=== PATIENT | female | born 1990 | race Two or more races ===

== ENCOUNTER 2018-08-11 08:23 | Inpatient (IN) | payer MEDICAID, OTHER ==
[~2018-08-11] VITALS: Ht 172.7 cm; Wt 63.5 kg
[2018-08-11 09:00] LABS: BASOPHILS % (AUTO) 0.4 % (0.0-2.0); EOSINOPHILS % (AUTO) 2.2 % (0.0-6.0); HEMATOCRIT 31 % (33-45); HEMOGLOBIN 10.1 g/dL (11.5-14.8); LYMPHOCYTES % (AUTO) 20.4 % (20.0-44.0); MEAN CORPUSCULAR HGB CONC 33 g/dl (31.0-36.0); MEAN CORPUSCULAR VOLUME 85 fL (82-100); MONOCYTES # (AUTO) 0.3 /CMM (0.1-1.30); MONOCYTES % (AUTO) 6.2 % (2.0-12.0); NEUTROPHILS # (AUTO) 3.6 /CMM (1.8-8.9); NEUTROPHILS % (AUTO) 70.8 % (43.0-81.0); PLATELET COUNT (AUTO) 189 /CMM (150-450); RED BLOOD CELL COUNT(AUTO) 3.64 MIL/uL (4.0-5.2)
[2018-08-11 09:07] LABS: CALCIUM, SERUM 8.3 mg/dL (8.5-10.1); CREATININE 0.7 mg/dL (0.6-1.3); POTASSIUM 3.5 mmol/L (3.5-5.1)
[2018-08-11 09:08] LABS: APPEARANCE,URINE CLEAR (CLEAR); BILIRUBIN,URINE NEGATIVE (NEGATIVE); BLOOD, URINE 3+ Ery/uL (NEGATIVE); COLOR,URINE YELLOW (YELLOW); KETONES,URINE NEGATIVE (NEGATIVE); LEUKOCYTE ESTERASE ,URINE NEGATIVE (NEGATIVE); NITRITE, URINE NEGATIVE (NEGATIVE); PH,URINE 6.5 (5.0-8.0); PROTEIN,URINE NEGATIVE (NEGATIVE); UGLUCOSE NEGATIVE (NEGATIVE); UROBILINOGEN,URINE 0.2 EU/dL (0.2)
[2018-08-11 09:14] LABS: RBC,URINE 21-50 /HPF (0-2)
[2018-08-11 09:15] LABS: BACTERIA,URINE Rare /HPF (None Seen); SQUAMOUS EPITHELIAL CELL,UR Few /HPF (None Seen)
--- NOTE | 2018-08-11 11:17 | NUR ---
CALLED DR ALMANZAR ON THE PHONE WITH DR MENDEZ.
[2018-08-11] MEDS ORDERED: IV NS 0.9% 1,000 ML IV PRN (12:17)
--- NOTE | 2018-08-11 12:18 | NUR ---
REPORT GIVEN TO DAVID PERRY FOR FRANCIS. PATIENT FOR MED SURG ROOM 328-1
--- NOTE | 2018-08-11 12:22 | NUR ---
PATIENT TRANSFERED TO [facility] BED 328-1 WITHOUT COMPLICATION. CARE ENDORSED TO [place]O HERNANDEZ. ALL BELONGINVGS WITH /SO
[2018-08-11] MEDS ORDERED: ONDANSETRON HCL/PF 4 MG/2 ML VIAL IVP PRN (12:30)
[2018-08-11] MEDS ORDERED: MORPHINE SULFATE INJ 2 MG/ML DISP.SYRIN IV PRN (12:30)
[2018-08-11 12:55] VITALS: BP 99/59
--- NOTE | 2018-08-11 12:55 | NUR ---
ms rn received a new admission, a 28 year old female, came in w/ dx of ectopic , awake,alert,oriented x4,will have surgery today,will monitor patient.
[2018-08-11] MEDS ORDERED: HYDROMORPHONE INJ 0.5 MG/0.5 ML SYRINGE IV PRN (13:00)
[2018-08-11] MEDS ORDERED: PIPERACILLIN /TAZOBACTAM 4.5 G in IV D5W 50 ML IV ONE (13:00)
[2018-08-11] MEDS ORDERED: HYDROMORPHONE INJ 2 MG/ML DISP.SYRIN ONE (13:59)
[2018-08-11] MEDS ORDERED: ROCURONIUM BROMIDE 50 MG/5 ML ONE (13:59)
[2018-08-11] MEDS ORDERED: MIDAZOLAM HCL 2 MG/2ML VIAL ONE (13:59)
--- NOTE | 2018-08-11 15:40 | NUR ---
ms rn went down to surgery ,no distress noted.
[2018-08-11 16:09] VITALS: BP 95/54
[2018-08-11] MEDS ORDERED: CLINDAMYCIN 900 MG/6 ML VIAL ONE (17:29)
--- NOTE | 2018-08-11 17:32 | NUR ---
ms schwarz on bed, all needs attended. Addendum: 08/11/18 at 1735 by DAVID DANIELS RN disregard notes, wrong pt entry.
--- NOTE | 2018-08-11 17:35 | NUR ---
ms rn patient still down at or at this time.
[2018-08-11] MEDS ORDERED: ACETAMINOPHEN 325 MG TABLET PO PRN (18:00)
[2018-08-11] MEDS ORDERED: HYDROCODONE/APAP 5/325MG 1 EACH TABLET PO PRN (18:00)
[2018-08-11] MEDS ORDERED: IV LR 1000 ML 1,000 ML IV PRN (18:00)
[2018-08-11] MEDS: PIPERACILLIN /TAZOBACTAM 3.375 G in IV D5W 100 ML IV SCH (18:44)
--- NOTE | 2018-08-11 19:05 | NUR ---
RN MS OPENING NOTES RECEIVED PATIENT IN BED AWAKE ALERT AND ORIENTED X 4, ABLE TO MAKE NEEDS KNOWN, RESPIRATIONS EVEN AND UNLABORED WITH EQUAL RISE AND FALL OF CHEST,DENIES ANY PAIN OR DISCOMFORT AT THIS TIME, IV SITE TO LEFT AC ##20 INTACT AND PATENT, NO REDNESS, NO INFILTRATION PRESENT, ORIENTED TO STAFF AND CALL LIGHT, AND KEPT WITHIN REACH, TOILETING NEEDS RENDERED FLUIDS OFFERED, REMAINS COMFORTABLE, ALL NEEDS ATTENDED AT THIS TIME, WILL CONTINUE TO MONITOR.
[2018-08-11 20:00] VITALS: BP 103/54
[2018-08-11 21:39] VITALS: BP 103/54
[2018-08-11] MEDS ORDERED: ZOLPIDEM TARTRATE 5 MG TABLET PO PRN (22:00)
[2018-08-12] MEDS: PIPERACILLIN /TAZOBACTAM 3.375 G in IV D5W 100 ML IV SCH ×2 (02:03→10:03)
--- NOTE | 2018-08-12 06:31 | NUR ---
RN MS CLOSING NOTES PATIENT IN BED SLEEPING BUT EASILY AROUSABLE ALERT AND ORIENTED X 4, ABLE TO MAKE NEEDS KNOWN, RESPIRATIONS EVEN AND UNLABORED WITH EQUAL RISE AND FALL OF CHEST,DENIES ANY PAIN OR DISCOMFORT AT THIS TIME, IV SITE TO LEFT AC #20 INTACT AND PATENT, NO REDNESS, NO INFILTRATION PRESENT, CALL LIGHT KEPT WITHIN REACH, TOILETING NEEDS RENDERED FLUIDS OFFERED, REMAINS COMFORTABLE, ALL NEEDS ATTENDED AT THIS TIME, WILL CONTINUE TO MONITOR AND ENDORSE TO NEXT SHIFT.
--- NOTE | 2018-08-12 06:49 | NUR ---
RN MS NOTES PATIENT COMPLAINT OF PAIN TO ABDOMINAL SITE 01/27 REQUESTING FOR TYLENOL. TYLENOL PRN GIVEN
[2018-08-12 07:51] LABS: HEMATOCRIT 27 % (33-45); HEMOGLOBIN 9.1 g/dL (11.5-14.8); LYMPHOCYTES # (AUTO) 0.8 /CMM (0.8-4.8); LYMPHOCYTES % (AUTO) 12.1 % (20.0-44.0); MEAN CORPUSCULAR HGB CONC 34 g/dl (31.0-36.0); MEAN CORPUSCULAR VOLUME 84 fL (82-100); MONOCYTES # (AUTO) 0.5 /CMM (0.1-1.30); MONOCYTES % (AUTO) 7.2 % (2.0-12.0); NEUTROPHILS # (AUTO) 5.3 /CMM (1.8-8.9); NEUTROPHILS % (AUTO) 80.7 % (43.0-81.0); PLATELET COUNT (AUTO) 186 /CMM (150-450); RED BLOOD CELL COUNT(AUTO) 3.22 MIL/uL (4.0-5.2); WHITE BLOOD COUNT (AUTO) 6.6 K/uL (4.3-11.0)
[2018-08-12 08:00] VITALS: BP 92/43
--- NOTE | 2018-08-12 08:00 | NUR ---
ms rn received on bed, awake,alert,oriented x4,not in any form of distress, respirations even and unlabored,no sob noted, s/p laparoscopic left partial salpingectomy and removal of iud.incision sites w/ dressing dry and intact,denies pain at this time,all needs attended.
[2018-08-12 08:02] LABS: CALCIUM, SERUM 8.4 mg/dL (8.5-10.1); CREATININE 0.9 mg/dL (0.6-1.3); MAGNESIUM 2.2 mg/dL (1.8-2.4); POTASSIUM 3.6 mmol/L (3.5-5.1)
[2018-08-12 08:05] LABS: PHOSPHORUS 8.3 mg/dL (2.5-4.9)
--- NOTE | 2018-08-12 09:00 | NUR ---
ms rn breakfast served,tolerated well.
--- NOTE | 2018-08-12 11:00 | NUR ---
ms karishma was seen by dr. rodrigo anna/ orders made and carried out
[2018-08-12] MEDS ORDERED: IBUP-1953 PO (12:27)
[2018-08-12] MEDS ORDERED: ACET325T53 PO (12:27)
--- NOTE | 2018-08-12 13:00 | NUR ---
ms hand turner instructions given and understood, patient went home w/ prescriptions accompanied by ,no distress noted.
== END 2018-08-12 13:00 | disposition home or self-care (01) | DRG 545 ==
LOC: ER 08:26 → MED 12:07
PROC: 0UB64ZZ Excision of Left Fallopian Tube, Percutaneous Endoscopic Approach (ICD-10-PCS; principal; 2018-08-11)
PROC: 10T24ZZ Resection of Products of Conception, Ectopic, Percutaneous Endoscopic Approach (ICD-10-PCS; principal; 2018-08-11)
PROC: 0UPDXHZ Removal of Contraceptive Device from Uterus and Cervix, External Approach (ICD-10-PCS; principal; 2018-08-11)
DX: O00.112 Left tubal pregnancy with intrauterine pregnancy (principal); K66.1 Hemoperitoneum
CPT/HCPCS: 36415; 76856-TC; 80048-TC; 81000-TC; 83735-TC; 84100-TC; 84702-TC; 85025-TC; 85730-TC; 86850-TC; 87081-TC; 88300-TC; 88305-TC; A6403; G0378; J0330; J0690; J1100; J1170; J1885; J2250; J2405; J2543; J2704; J2710; J3490; J7030; J7060; J7120